=== PATIENT | female | born 1945 | race Caucasian/White ===

== ENCOUNTER → 2016-09-19 | Outpatient (CLI) | payer MEDICARE ==
[~2016-09-19] MED LIST: ALBU18HF2 ORAL INH; FERR142T14 PO; PANT40TA27 PO; ROPI2TAB6 PO; SUCR1TAB PO
--- NOTE | 2016-09-19 08:56 | DI ---
Indication: ITS.REASON: M54.5 LOW BACK PAIN with bilateral hip pain PROCEDURE: MRI LUMBAR SPINE W/O CONTRAST: Encounter: Initial Comparison: None Technique: Multiplanar multisequence MR imaging of the lumbar spine was performed without contrast. Findings: Significant scoliotic curvature of the lumbar spine. No acute fracture seen. Multiple small Schmorl's nodes. Conus medullaris terminates normally at L1. The paraspinal soft tissues are unremarkable. Segmental analysis: L1-L2: No focal disk herniation or central canal stenosis. Degenerative facet disease contributing to mild bilateral neural foraminal stenosis. L2-L3: No focal disk herniation or central canal stenosis. Degenerative facet disease causing mild left foraminal stenosis. No right foraminal narrowing. L3-L4: Mild disk bulging with degenerative facet disease causing mild to moderate central canal stenosis. Moderate left and mild right neural foraminal stenosis. L4-L5: Degenerative facet hypertrophy with a small but broad central disk protrusion results in mild central canal stenosis. Mild right neural foraminal narrowing. No significant left foraminal stenosis. L5-S1: No focal disk protrusion or central canal stenosis. Degenerative facet hypertrophy on the right contributing to mild foraminal stenosis. No left foraminal narrowing. Impression: Scoliosis with multifocal neural foraminal stenosis and central canal narrowing at L3-L4 and L4-L5. .
== END ==
LOC: IMA 06:50
PROVIDERS: ATTEND Internal Medicine
DX: M48.06 Spinal stenosis, lumbar region (principal); M41.9 Scoliosis, unspecified; M54.5 Low back pain

== ENCOUNTER → 2016-10-08 | Outpatient (CLI) | payer MEDICARE ==
[~2016-10-08] MED LIST changes: +IOHEXOL 180 MG/ML 20ml INJECTION ONE; +LIDOCAINE 1% (10mg/ml) 5ml VIAL ONE; +MethylPREDNISolone ACETATE 40mg/1ml ONE
--- NOTE | 2016-10-08 10:33 | DI ---
Indication:ITS.REASON: M48.06 SPINAL STENOSIS Procedure:EPIDURAL INJ.SPINE W FLUO CATH LUMBAR EPIDURAL INJECTION: The patient has low back and radicular pain. The patient has not had any previous epidurals. The details of the procedure, including the benefits, risks, and alternatives were explained to the patient. All of their questions were answered. They stated that they understood and wished to proceed. Informed consent was then obtained. A pre-procedural timeout was performed to confirm the correct patient and procedure. Utilizing aseptic technique, local lidocaine anesthetic, and fluoroscopic guidance throughout, a 22-gauge spinal needle was directed into the lumbar epidural space via an interlaminar approach at the L5-S1 level. Contrast was injected to assure proper positioning of the needle tip. A fluoroscopic image was then taken and archived. Subsequently, 120 mg Depo-Medrol was injected into the epidural space. The patient tolerated the procedure well. IMPRESSION: Successful lumbar epidural steroid injection. Fluoroscopy dose: 14.08 mGy (Cumulative air kerma) Todd Johnson RPA/LATONYA performed this under my personal supervision. .
== END ==
LOC: IMA 07:28
PROVIDERS: ATTEND Internal Medicine
DX: M48.06 Spinal stenosis, lumbar region (principal)
CPT/HCPCS: 62323; J1030; Q9965